=== PATIENT | male | born 1950 | race Caucasian/White ===

== ENCOUNTER 2024-08-12 18:17 | Emergency (ER) | payer OTHER, MEDICARE, SELFPAY ==
[2024-08-12 18:31] VITALS: BP 159/76; PULSE 78; RESP 18; TEMP 36.5; O2SAT 98; BMI 31.5
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
[2024-08-12 20:48] VITALS: BP 168/96; PULSE 69; O2SAT 98
== END 2024-08-12 21:37 | disposition home or self-care (01) ==
PROVIDERS: Emergency Provider Physician Assistant
DX: S00.83XA Contusion of other part of head, initial encounter (principal); X58.XXXA Exposure to other specified factors, initial encounter
CPT/HCPCS: 70450; 70486; 99284

== ENCOUNTER 2024-08-16 22:23 | Emergency (ER) | payer MEDICARE, SELFPAY ==
[2024-08-16 22:25] VITALS: BP 160/99; PULSE 70; RESP 18; TEMP 36.3; O2SAT 97
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
[2024-08-16 22:39] VITALS: BP 160/99; PULSE 68; RESP 16; O2SAT 98
== END 2024-08-16 22:40 | disposition home or self-care (01) ==
PROVIDERS: Emergency Provider Nurse Practitioner Family
DX: Z48.02 Encounter for removal of sutures (principal); S01.01XD Laceration without foreign body of scalp, subsequent encounter; V89.2XXD Person injured in unspecified motor-vehicle accident, traffic, subsequent encounter
CPT/HCPCS: 99281